=== PATIENT | male | born 1970 | race African-American/Black ===

== ENCOUNTER 2022-05-16 13:28 | Outpatient (CLI) | payer BC, SELFPAY ==
[2022-05-16 20:18] LABS: Appearance Urine Turbid (Clear); Bilirubin Urine Negative (Negative); Blood Urine Negative (Negative); Color Urine Yellow (Yellow); Glucose Urine UA Negative (Negative); Ketones Urine Negative (Negative); Leukocyte Esterase Ur Negative LEU/UL (NEGATIVE); Nitrate Urine Negative (Negative); Protein Urine Trace mg/dL (Negative); Specific Grav Ur >= 1.030 (1.001-1.035); Urobilinogen Urine 0.2 mg/dL (<2.0)
[2022-05-16 20:25] LABS: Mucus Urine Rare /lpf; WBC Urine 0-3 /hpf (0-3)
[2022-05-16 20:26] LABS: Add Urine Microscopic? YES
== END 2022-05-16 13:29 | disposition home or self-care (01) ==
PROVIDERS: PCP Internal Medicine; Visit Provider Internal Medicine
DX: R10.9 Unspecified abdominal pain (principal)
CPT/HCPCS: 81001

== ENCOUNTER 2022-05-18 11:40 | Outpatient (CLI) | payer BC, SELFPAY ==
[2022-05-18 19:31] LABS: Alanine Aminotransferase 24 U/L (6-50); Albumin Level 3.9 g/dL (3.5-5.1); Alkaline Phosphatase 72 U/L (38-126); Aspartate Amino Transferase 40 U/L (17-59); Bilirubin,Total 0.4 mg/dL (0.2-1.3)
[2022-05-18 20:11] LABS: Hepatitis B Surface Antigen Negative (Negative)
[2022-05-18 20:29] LABS: Hepatitis C Virus Antibody Negative (Negative)
== END 2022-05-18 11:41 | disposition home or self-care (01) ==
LOC: ANHGOSHLAB 11:41
PROVIDERS: PCP Internal Medicine; Visit Provider Internal Medicine
DX: R74.8 Abnormal levels of other serum enzymes (principal)
CPT/HCPCS: 36415; 80076; 86803; 87340

== ENCOUNTER 2022-05-24 15:19 | Outpatient (CLI) | payer BC, SELFPAY ==
[2022-05-24 19:21] LABS: Basophils Absolute Auto 0.1 K/mm3 (0.0-0.1); Basophils Percent Auto 0.6 % (0.2-1.2); Eosinophils Absolute Auto 0.5 K/mm3 (0-0.3); Eosinophils Percent Auto 4.5 % (0-4.4); Hematocrit 43.3 % (42.0-52.0); Hemoglobin 13.6 g/dL (14.0-18.0); Immature Granulocyte Absolute 0.02 K/mm3 (0.00-0.031); Immature Granulocyte Percent A 0.2 % (0-0.5); Lymphocytes Percent Auto 23.2 % (18.3-44.2); Mean Corpuscular HGB Conc 31.4 g/dl (32-36); Mean Corpuscular Hemoglobin 27.7 pg (26-34); Mean Corpuscular Volume 88.2 fl (80-100); Mean Platelet Volume 10.6 fl (7.4-10.4); Monocytes Absolute Auto 0.8 K/mm3 (0.1-0.6); Monocytes Percent Auto 7.6 % (2.6-8.5); Neutrophils Absolute Auto 6.4 K/mm3 (1.3-6.7); Neutrophils Percent Auto 63.9 % (45.5-73.1); Platelet Count Result 245 k/mm3 (150-375); Red Blood Count 4.91 M/mm3 (4.6-6.20); Red Cell Distribution Width 13.7 % (11.5-14.5); White Blood Count 9.9 K/mm3 (4.5-10.0)
[2022-05-24 19:52] LABS: Alanine Aminotransferase 34 U/L (6-50); Albumin Level 4.4 g/dL (3.5-5.1); Alkaline Phosphatase 80 U/L (38-126); Anion Gap 9 mmol/L (8-16); Aspartate Amino Transferase 59 U/L (17-59); Bilirubin,Total 0.9 mg/dL (0.2-1.3); Blood Urea Nitrogen 13 mg/dL (9-20); Calcium 9.3 mg/dL (8.4-10.2); Carbon Dioxide 28 mmol/L (22-30); Chloride 98 mmol/L (98-107); Cholesterol 209 mg/dL (0-200); Estimated Glomerular Filt Rate > 60; Glucose 84 mg/dL (65-110); HDL Direct 42 mg/dL; Potassium 3.8 mmol/L (3.4-5.0); Sodium 135 mmol/L (137-145); Triglycerides 52 mg/dL (<150)
[2022-05-24 20:03] LABS: LDL Cholesterol Direct 145 mg/dL
[2022-05-24 23:49] LABS: HIV 1/2 Ab P24 Ag 1.16
[2022-05-24 23:50] LABS: HIV 1/2 Ab P24 Ag Result Reactive (Negative)
[2022-05-24 23:51] LABS: HIVc Retest 1 1.45
[2022-05-24 23:52] LABS: HIVc Retest 2 1.49
[2022-05-25 05:59] LABS: Rapid Plasma Reagin Non-Reactive (NonReactive)
[2022-05-31 07:34] LABS: Herpes Simplex Type 1 DNA PCR Not Detected; Herpes Simplex Type 2 DNA PCR Not Detected
== END 2022-05-24 15:20 | disposition home or self-care (01) ==
LOC: ANHGOSHLAB 15:20
PROVIDERS: PCP Internal Medicine; Visit Provider Clinical Nurse Specialist
DX: R74.8 Abnormal levels of other serum enzymes (principal); Z72.51 High risk heterosexual behavior; Z13.220 Encounter for screening for lipoid disorders
CPT/HCPCS: 36415; 80053; 80061; 85025; 86592; 86701; 86702; 86703; 87389; 87491; 87529; 87535; 87591; G0432

== ENCOUNTER 2022-05-25 14:43 | Outpatient (CLI) | payer BC, SELFPAY ==
[2022-05-25 22:20] LABS: HIV 1/2 Ab P24 Ag 1.51
[2022-05-25 22:23] LABS: HIV 1/2 Ab P24 Ag Result Reactive (Negative)
[2022-05-29 15:00] LABS: Absolute CD4 Count 1240 cells/uL (490-1740); Lymphocytes, Absolute 2293 cells/uL (850-3900); Percent CD4 Cells 54 % (30-61)
[2022-06-06 10:07] LABS: HIV 1 2 Ag Ab 4th Gen w Rflxs Non-reactive (Non-reactive)
== END 2022-05-25 14:44 | disposition home or self-care (01) ==
LOC: ANHGOSHLAB 14:45
PROVIDERS: PCP Internal Medicine; Visit Provider Clinical Nurse Specialist
DX: Z20.6 Contact with and (suspected) exposure to human immunodeficiency virus [HIV] (principal)
CPT/HCPCS: 36415; 86361; 86703; 87389; G0432

== ENCOUNTER 2022-05-30 08:25 | Outpatient (CLI) | payer BC, SELFPAY ==
--- NOTE | ~2022-05-30 | US_ITS ---
US abdomen limited INDICATION: Abdomen pain PROCEDURE: Realtime right upper abdominal ultrasound. COMPARISON: No prior studies for comparison. FINDINGS: The pancreas is normal without focal mass or pancreatic ductal dilation. There is a liver cyst measuring 1.9 cm. Remainder of the liver parenchyma is normal. There is normal directional flow in the portal vein. The gallbladder is normal without stones, gallbladder wall thickening or pericholecystic fluid. Comm on bile duct measures 3 mm. No sonographic Caly's sign. IMPRESSION: 1: Liver cyst measuring 1.9 cm. Reviewed, dictated and finalized at location B.
--- NOTE | ~2022-05-30 | US_ITS ---
EXAMINATION: US retroperitoneal comp DATE: 05/30/2022 09:07 INDICATION: Unspecified abdominal pain TECHNIQUE: Multiple grayscale and Doppler ultrasound images of the kidneys were obtained. COMPARISON: None. FINDINGS: The right kidney measures 10.9 x 5.5 x 4.9 cm. The left kidney measures 12.5 x 4.8 x 6.6 cm . The kidneys demonstrate normal parenchymal echogenicity. There is no hydronephrosis. The bladder is normal. IMPRESSION: 1. Normal kidneys without hydronephrosis. Reviewed, dictated and finalized at location A.
== END 2022-05-30 08:26 | disposition home or self-care (01) ==
LOC: ANHIMG 08:29
PROVIDERS: PCP Internal Medicine; Visit Provider Internal Medicine
DX: R74.8 Abnormal levels of other serum enzymes (principal); K76.89 Other specified diseases of liver
CPT/HCPCS: 76705; 76770

== ENCOUNTER 2022-06-15 00:54 | Day surgery (SDC) | payer BC, SELFPAY ==
[2022-06-05 14:17] VITALS: BMI 30.5
--- NOTE | 2022-06-05 15:00 | PC.NURSE ---
Patient verbally verified to not take the mag citrate as part of his bowel prep.
[2022-06-15 10:00] VITALS: BP 129/73; PULSE 58; RESP 18; TEMP 36.7; O2SAT 100
[2022-06-15] MEDS: LACTATED RINGERS 1,000 ML 150 ML IV CONT (10:11)
--- NOTE | 2022-06-15 10:47 | P.PNAN_ITS ---
Anes - Initial Pre Proc Eval Procedure: Operation Date: 06/15/22 11:30 Proposed Procedures p Colonoscopy - Shin Butterfield MD Date/Time: 06/15/22 10:47 Surgeon: Shin Butterfield MD Pre Op Diagnosis: melena, family hx colon ca Patient Data Age: 52 Gender: M Height: 1.7 m Weight: 88 kg Last Vital Signs Temp 98.1 F 06/15/22 10:00 Pulse 58 L 06/15/22 10:00 Resp 18 06/15/22 10:00 BP 129/73 06/15/22 10:00 Pulse Ox 100 06/15/22 10:00 O2 Del Method Room Air 06/15/22 10:00 Allergies Allergy/AdvReac Type Severity Reaction Status Date / Time No Known Allergies Allergy Verified 06/15/22 09:58 Home Medications Medication Instructions Recorded Confirmed Type testosterone cypionate 200 mg/mL 160 mg (0.8 mL) IM WEEKLY #1 mL 05/16/22 06/05/22 Rx intramuscular oil cholecalciferol (vitamin D3) 1,250 1,250 mcg PO WEEKLY 06/05/22 06/05/22 History mcg (50,000 unit) capsule Patient hx anesthesia problems: none Family hx anesthesia problems: none Results Review: All pre-operative results and documents have been reviewed as part of the pre- operative evaluation. [facility] Past Medical History Medical History Male hypogonadism Family History Family History Father Throat cancer Mother Glaucoma Breast cancer Carcinoma of colon Social History Social History Smoking status: Never smoker Substance use: never Substance use type: does not use Living arrangements: alone Anes - Eval Final PreProcedure Day of Procedure 06/15/22 10:47 Patient weight: overweight Heart: regular rate and rhythm Lungs: clear to auscultation Airway: Mallampati scale class II Neurological: alert and oriented Last oral intake: >/= 8 hours ASA classification: II Emergent: no Anesthetic plan: proceed Anesthesia type and monitoring: general GIVS and standard monitoring Results Review: All pre-operative results and documents have been reviewed as part of the pre- operative evaluation. Informed Consent: The patient's anesthetic plan and its attendant risks and benefits were discussed with the patient/family/POA. Questions were solicited and answers provided to the satisfaction of the patient/family/POA.
--- NOTE | 2022-06-15 10:59 | P.HP_ITS ---
H&P: HPI History of Present Illness Date/Time: 06/15/22 10:59 Chief Complaint: Rectal bleeding and family history of colon cancer. Narrative: This is a 52-year-old male patient presents for colonoscopy. Patient has noted intermittent bright red blood per rectum attributed to hemorrhoids. His family history is significant that his mother had colon cancer. Patient reports bowel habits otherwise are normal. He denies abdominal pain. Previous colonoscopy 4 years ago confirmed hemorrhoids. Patient presents today for surveillance exam. Review of Systems Review of Systems: Review of systems noncontributory. [facility] Past Medical History Medical History Male hypogonadism Family History Family History Father Throat cancer Mother Glaucoma Breast cancer Carcinoma of colon Social History Social History Smoking status: Never smoker Substance use: never Substance use type: does not use Living arrangements: alone Meds Home Medications and Allergies Home Medications Medication Instructions Recorded Confirmed Type testosterone cypionate 200 mg/mL 160 mg (0.8 mL) IM WEEKLY #1 mL 05/16/22 06/05/22 Rx intramuscular oil cholecalciferol (vitamin D3) 1,250 1,250 mcg PO WEEKLY 06/05/22 06/05/22 History mcg (50,000 unit) capsule Allergies Allergy/AdvReac Type Severity Reaction Status Date / Time No Known Allergies Allergy Verified 06/15/22 09:58 Vital Signs Vital Signs - 24 hr 06/15/22 10:00 Temperature 98.1 F Pulse Rate 58 L Respiratory Rate 18 Blood Pressure 129/73 Pulse Oximetry 100 Oxygen Delivery Room Air Exam Narrative: Physical exam reveals patient to be alert. Vital signs stable. HEENT exam is unremarkable. Patient is anicteric. Lungs are clear to auscultation and percussion. Heart is without murmur or extra sounds. Abdominal exam bowel sounds are present soft nontender with no organomegaly. Digital external rectal exam is normal. Assessment and Plan Assessment and plan (1) Blood in stool: Code(s): K92.1 - Melena Status: Acute Assessment and Plan: Patient with rectal bleeding may be hemorrhoids. Plan is for high-fiber diet. Colonoscopy will be performed to evaluate consider hemorrhoidectomy if rectal bleeding persists. (2) Family history of colon cancer in mother: Code(s): Z80.0 - Family history of malignant neoplasm of digestive organs Status: Acute Assessment and Plan: Patient's mother had colon cancer. Suggest patient have follow-up colonoscopy at 5 year intervals.
[2022-06-15 11:27] VITALS: BP 97/59; PULSE 62; RESP 20; O2SAT 100
[2022-06-15 11:37] VITALS: BP 124/74; PULSE 64; RESP 20; O2SAT 100
[2022-06-15 11:47] VITALS: BP 122/76; PULSE 62; RESP 18; O2SAT 100
== END 2022-06-15 12:03 | disposition home or self-care (01) ==
PROVIDERS: PCP Internal Medicine; Visit Provider Internal Medicine Gastroenterology
PROC: 0DJD8ZZ Inspection of Lower Intestinal Tract, Via Natural or Artificial Opening Endoscopic (ICD-10-PCS; CPT 45378; principal; 2022-06-15 11:30)
DX: K62.5 Hemorrhage of anus and rectum (principal); K64.8 Other hemorrhoids; Z80.0 Family history of malignant neoplasm of digestive organs; E29.1 Testicular hypofunction; Z79.890 Hormone replacement therapy
CPT/HCPCS: 45378; J2704; J7120

== ENCOUNTER 2022-06-30 17:32 | Emergency (ER) | payer BC, SELFPAY ==
--- NOTE | ~2022-06-30 | US_ITS ---
EXAMINATION: US venous doppler LE RT DATE: 06/30/2022 18:11 INDICATION: Right lower limb pain and swelling. TECHNIQUE: Grayscale ultrasound images without and with compression and Doppler ultrasound images of the right lower extremity veins were obtained. COMPARISON: None. FINDINGS: The visualized portions of right common femoral vein, profunda (deep) femoral vein, femoral vein, pop liteal vein, peroneal veins, posterior tibial veins, and greater saphenous vein outflow are patent. IMPRESSION: 1. No deep venous thrombosis. Reviewed, dictated and finalized at location A.
[2022-06-30 17:34] VITALS: BP 149/98; PULSE 74; RESP 14; TEMP 36.6; O2SAT 100
--- NOTE | 2022-06-30 17:59 | ED.BACK ---
HPI - Back Pain/Injury General Chief Complaint: Back Pain/Injury <LAURA Ohara Last Filed: 06/30/22 23:31> Stated Complaint: back pain radiating to buttocks and leg <LAURA Ohara Last Filed: 06/30/22 23:31> Time Seen by Provider: 06/30/22 17:48 <LAURA Ohara Last Filed: 06/30/22 23:31> History of Present Illness HPI Narrative: Patient is a 52-year-old male here for evaluation of atraumatic right lower extremity pain for the past day and a half. Patient states the pain is severe in nature, begins in his upper hip area and radiates down his leg. He describes it as sharp and shooting, worse with certain positions and movement. He has been walking but states he had to leave work today due to the severity of the pain. He has been attempting Tylenol without significant relief of his pain. Denies any incontinence or retention of bowel or bladder, fevers or chills, trauma to the area. No history of blood clot but does state the pain might be concentrated in his calf and he sometimes feels that the extremity is swollen. <LAURA Ohara Last Filed: 06/30/22 23:31> Related Data Home Medications: Home Medications Medication Instructions Recorded Confirmed cholecalciferol (vitamin D3) 1,250 1,250 mcg PO WEEKLY 06/05/22 06/05/22 mcg (50,000 unit) capsule <LAURA Ohara Last Filed: 06/30/22 23:31> Allergies/Adverse Reactions: Allergies Allergy/AdvReac Type Severity Reaction Status Date / Time No Known Allergies Allergy Verified 06/15/22 09:58 <LAURA Ohara Last Filed: 06/30/22 23:31> Review of Systems Review of Systems: Gen: Denies fevers or chills Eyes: Denies eye pain or visual change ENT: Denies congestion Respiratory: Denies shortness of breath or cough CV: Denies chest pain or palpitations GI: Denies abdominal pain nausea, emesis or diarrhea : denies burning, urgency, frequency or hematuria Musculoskeletal: Reports right lower extremity pain. Neuro: Denies numbness, tingling, weakness or focal weakness Skin: Denies rash Except as documented, all other systems reviewed and negative <Chely Blanc PA-C - Last Filed: 06/30/22 23:31> PMFSH Past Medical History Medical History: Medical History Male hypogonadism <Chely Blanc PA-C - Last Filed: 06/30/22 23:31> Family History Family History: Family History Father Throat cancer Mother Glaucoma Breast cancer Carcinoma of colon <Chely Blanc PA-C - Last Filed: 06/30/22 23:31> Social History Social History: Social History Smoking status: Never smoker Substance use: never Substance use type: does not use <Chely Blanc PA-C - Last Filed: 06/30/22 23:31> Exam Narrative: APPEARANCE: Well appearing, no pain in distress, well-nourished. Head: Normocephalic and atraumatic. EYES: PERRLA/EOMI, conjunctivae clear NOSE: No nasal drainage EARS: External ear normal in appearance THROAT: Oropharynx is clear. Mucous membranes are moist. NECK: Supple. No adenopathy, no masses. RESPIRATORY: Airway patent, respirations nonlabored. Clear to auscultation bilaterally, no rales, rhonchi, wheezing. CARDIOVASCULAR: Regular rate and rhythm without murmurs, rubs, or gallops. ABDOMINAL: Normoactive bowel sounds. Soft, nontender, nondistended. No rebound tenderness or guarding. MUSCULOSKELETAL: No CVA tenderness. No midline tenderness to C, T, or L-spine. Straight leg raise negative bilaterally. Extremities are warm and well-perfused. Moves all extremities well. No edema appreciated. Ambulatory in room. NEURO: Normal speech. No focal neurologic deficits. SKIN: Skin is warm and dry. No rashes. PSYCHIATRIC: Normal affe
[2022-06-30] MEDS: KETOROLAC 30 MG/ML VIAL (*BKC) IM (18:09)
[2022-06-30] MEDS: predniSONE 20 MG TABLET 40 MG PO (18:10)
== END 2022-06-30 18:40 | disposition home or self-care (01) ==
PROVIDERS: Emergency Provider Emergency Medicine; PCP Internal Medicine
DX: M54.31 Sciatica, right side (principal)
CPT/HCPCS: 93971; 96372; 99284; J1885; J7512